=== PATIENT | male | born 1990 | race Caucasian/White ===

== ENCOUNTER 2024-07-25 09:05 | Emergency (ER) | payer OTHER ==
[~2024-07-25] VITALS: Ht 170.2 cm; Wt 79.4 kg
[2024-07-25 09:11] VITALS: BP 129/87
== END 2024-07-25 10:03 | disposition home or self-care (01) ==
LOC: ER 09:05
DX: S46.001A Unspecified injury of muscle(s) and tendon(s) of the rotator cuff of right shoulder, initial encounter (principal); W01.0XXA Fall on same level from slipping, tripping and stumbling without subsequent striking against object, initial encounter; Y99.0 Civilian activity done for income or pay; Z88.5 Allergy status to narcotic agent; Z88.8 Allergy status to other drugs, medicaments and biological substances
CPT/HCPCS: 99283